=== PATIENT | female | born 1955 ===

== ENCOUNTER → 2023-07-31 | Outpatient (CLI) | payer OTHER ==
[2023-07-31 12:35] LABS: Basophils # (auto) 0 10 ^3/uL (0-0.2); Basophils % (auto) 0.7 % (0.0-2.0); Eosinophils # (auto) 0.1 10 ^3/uL (0-0.8); Eosinophils % (auto) 2.2 % (0.0-7.0); Hematocrit 43.1 % (36.0-46.0); Hemoglobin 14.4 g/dL (12.2-16.2); Lymphocytes # (auto) 2.2 10 ^3/uL (0.4-5.4); Mean Corpuscular Hemoglobin 33.7 pg (28.0-32.0); Mean Corpuscular Hgb Conc. 33.4 g/dL (32.0-36.0); Mean Corpuscular Volume 100.7 fL (80.0-100.0); Monocytes # (auto) 0.5 10 ^3/uL (0-1.3); Monocytes % (auto) 7.4 % (0.0-12.0); Neutrophils # (auto) 3.3 10 ^3/uL (1.6-8.6); Neutrophils % (auto) 53.7 % (37.0-80.0); Red Blood Cells 4.28 10^6/uL (4.0-5.20); Red Cell Distribution Width 13.5 % (11.8-14.3); White Blood Cell 6.2 10^3/uL (4.4-10.8)
[2023-07-31 13:24] LABS: Folate (Folic Acid) 8.32 ng/mL (>5.38)
[2023-07-31 13:37] LABS: Creatinine, Urine 76.09 mg/dL (30.0-125.0)
[2023-07-31 13:39] LABS: Micro Albumin < 3.0 mg/L (<30.0)
[2023-07-31 14:04] LABS: Sodium 139 mmol/L (136-145)
[2023-07-31 14:05] LABS: Anion Gap 9 (5-15); Carbon Dioxide 24 mmol/L (20-30); Chloride 106 mmol/L (98-107)
[2023-07-31 14:06] LABS: Blood Urea Nitrogen 12 mg/dL (9-23); Glucose 95 mg/dL (74-106)
[2023-07-31 14:07] LABS: Alanine Aminotransferase 39 U/L (7-40); Aspartate Aminotransferase 24 U/L (13-40); BUN/Creatinine Ratio 16.7 (10.0-20.0); Calcium 9.3 mg/dL (8.5-10.1)
[2023-07-31 14:08] LABS: Cholesterol 229 mg/dL (< 200); HDL Cholesterol 69 mg/dL (40-59); LDL Cholesterol 149 mg/dL (< 100); Triglycerides 64 mg/dL (< 150)
[2023-08-01 08:06] LABS: Free Thyroxine Index 1.8 (1.2-4.9); Rheumatoid Arthritis Factor <10.0 IU/mL (<14.0); T3 Uptake 29 % (24-39); Thyroxine (T4) 6.1 ug/dL (4.5-12.0)
== END | disposition home or self-care (01) ==
LOC: LAB 12:02
PROVIDERS: ATTEND Specialist
DX: Z00.01 Encounter for general adult medical examination with abnormal findings (principal); Z13.1 Encounter for screening for diabetes mellitus; M13.80 Other specified arthritis, unspecified site; M79.642 Pain in left hand; N39.0 Urinary tract infection, site not specified; E75.6 Lipid storage disorder, unspecified; E55.9 Vitamin D deficiency, unspecified
CPT/HCPCS: 36415; 80048; 80061; 82043; 82306; 82570; 82607; 82746; 83036; 84443; 84450; 84460; 85025; 86431; 87086